=== PATIENT | female | born 2000 | race Native Hawaiian/Other Pacific Islander ===

== ENCOUNTER 2022-07-12 14:54 | Outpatient (CLI) | payer OTHER ==
--- NOTE | 2022-07-12 18:06 | XRAY Report ---
PROCEDURE: Finger(s) RT INDICATIONS: CONTUSION OF RIGHT THUMG WITHOUT DAMAGE TO NAIL TECHNIQUE: AP hand, 2 views of the first finger(s) acquired. COMPARISON: None FINDINGS: Bones: No fractures or dislocations. No suspicious bony lesions. Soft tissues: No suspicious soft tissue calcifications. IMPRESSION: No displaced fracture is seen by plain film. Reviewed by: Kahlil Correia MD on 07/12/2022 5:05 PM [facility] Approved by: Kahlil Correia MD on 07/12/2022 5:05 PM [facility] Station ID: [id number]
== END 2022-07-12 14:55 | disposition home or self-care (01) ==
LOC: DI 14:54
PROVIDERS: ATTEND Physician Assistant
DX: S60.011A Contusion of right thumb without damage to nail, initial encounter (principal)